=== PATIENT | female | born 1960 | race Caucasian/White ===

== ENCOUNTER → 2018-05-20 | Outpatient (CLI) | payer OTHER ==
[2018-05-20 09:36] VITALS: BP 114/64; TEMP 97.1; BMI 30.4
--- NOTE | 2018-05-20 10:15 | P.HPOB ---
History of Present Illness H&P Date: 05/20/18 Chief Complaint: The patient is here for her routine gynecologic exam and mammogram. This is a 58-year-old with an LMP of 2004. The patient is here to establish with this office. She is without gynecologic complaints and denies any postmenopausal bleeding. It has been about 6 years since her last pelvic exam and mammogram. Review of Systems She has lost about 60 pounds with dietary changes over the last 6 years. She denies respiratory, cardiac, or G.I. problems. 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 History of Any Multi-Drug Resistant Organisms: None Reported Past Surgical History: Section (x2) Past Psychological History: ADD/ADHD, Anxiety, Depression Smoking Status: Current every day smoker (Just under one pack per day.) Past Alcohol Use History: Rare Past Drug Use History: None Reported Additional History: She has been since 1980 and currently is not working outside the home. - Past Family History Mother Family Medical History: No Reported History Additional Family Medical History / Comment(s): Maternal grandmother had in [place]. Medications and Allergies Home Medications Medication Instructions Recorded Confirmed Type No Known Home Medications 05/20/18 05/20/18 History Allergies Allergy/AdvReac Type Severity Reaction Status Date / Time cat dander Allergy Unknown Verified 05/20/18 09:33 Penicillins Allergy Unknown Verified 05/20/18 09:33 Exam Vital Signs Temp BP 05/20/18 09:34 97.1 F L 114/64 Intake and Output 05/19/18 05/20/18 05/20/18 22:59 06:59 14:59 Other: Weight 73.028 kg Height 5'1", weight 161 pounds, BMI 30.4. This is a well-developed well-nourished white female who is alert and oriented times 3 in no acute distress. HEENT: Within normal limits. NECK: Supple without mass or thyromegaly. CHEST AND LUNGS: Clear to auscultation. HEART: Regular rate and rhythm. BREASTS: Are without mass or discharge. AXILLARY EXAM: Negative for adenopathy. BACK: Negative for CVA tenderness. ABDOMEN: Soft, nontender, without palpable masses. PELVIC EXAM: Normal external genitalia with mild atrophy. Cervix and vagina appear normal with mild to moderate atrophy. There is no unusual discharge. There is no evidence of prolapse. The uterus is midposition, nongravid size and nontender. There are no palpable adnexal masses or tenderness. RECTAL EXAM: rectovaginal exam is negative for mass or tenderness and is negative for occult blood. EXTREMITIES: Nontender. IMPRESSION: 1. 58-year-old menopausal female with normal gynecologic exam PLAN: 1. Pap smear was performed. 2. Self breast awareness was discussed with the patient. 3. Screening mammogram will be done today. 4. Osteoporosis prevention was discussed. 5. I have recommended that she established with the primary care physician assigned to her by her insurance company. She has not yet seen him, but is planning on making an appointment for this. I've also recommended that she do a colonoscopy based on her age. She states she will discuss this with her primary care physician when she establishes with him. 6. She will return in one year.
--- NOTE | 2018-05-22 12:31 | MM ---
Reason for exam: screening (asymptomatic). Last mammogram was performed 8 years and 9 months ago. History: Patient is postmenopausal. Physical Findings: A clinical breast exam by your physician is recommended on an annual basis and results should be correlated with mammographic findings. MG Screening Mammo w CAD Bilateral CC and MLO view(s) were taken. Prior study comparison: August 17, 2009, right breast mammogram dig work up. August 12, 2009, bilateral digital screening mammogram. There are scattered fibroglandular densities. No suspicious abnormality. No significant changes when compared with prior studies. ASSESSMENT: Negative, BI-RAD 1 RECOMMENDATION: Routine screening mammogram of both breasts in 1 year.
== END | disposition home or self-care (01) ==
LOC: WWCWWP 09:09
PROVIDERS: ATTEND Obstetrics & Gynecology
DX: Z12.31 Encounter for screening mammogram for malignant neoplasm of breast (principal)
CPT/HCPCS: 77067

== ENCOUNTER → 2020-02-26 | Outpatient (CLI) | payer OTHER ==
--- NOTE | 2020-02-29 09:16 | MM ---
Reason for exam: screening (asymptomatic). Last mammogram was performed 1 year and 9 months ago. History: Patient is postmenopausal. Physical Findings: A clinical breast exam by your physician is recommended on an annual basis and results should be correlated with mammographic findings. MG Screening Mammo w CAD Bilateral CC and MLO view(s) were taken. Prior study comparison: May 20, 2018, bilateral MG screening mammo w CAD. August 17, 2009, right breast mammogram dig work up. There are scattered fibroglandular densities. There is no discrete abnormality. Prominent benign right axillary lymph nodes redemonstrated. ASSESSMENT: Negative, BI-RAD 1 RECOMMENDATION: Routine screening mammogram of both breasts in 1 year.
== END | disposition home or self-care (01) ==
LOC: RADMAMWWP 08:35
PROVIDERS: ATTEND Family Medicine
DX: Z12.31 Encounter for screening mammogram for malignant neoplasm of breast (principal)
CPT/HCPCS: 77067

== ENCOUNTER → 2020-03-02 | Outpatient (CLI) | payer OTHER ==
[2020-03-02 11:19] VITALS: BP 130/84; PULSE 69; RESP 18; TEMP 98.2
--- NOTE | 2020-03-02 11:50 | P.HPOB ---
History of Present Illness H&P Date: 03/02/20 Chief Complaint: The patient is here for her routine gynecologic exam. This is a 59-year-old with an LMP of 2004. The patient is without gynecologic complaints and denies any postmenopausal bleeding. Review of Systems The patient's weight has been stable over the last year. She denies respiratory, cardiac, or G.I. problems. Past Medical History Past Medical History: Diabetes Mellitus Additional Past Medical History / Comment(s): Type 2 diabetes. 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 History of Any Multi-Drug Resistant Organisms: None Reported Past Surgical History: Section Additional Past Surgical History / Comment(s): section 2. Past Psychological History: ADD/ADHD, Anxiety, Depression Smoking Status: Current every day smoker (1 pack per day) Past Alcohol Use History: Rare Past Drug Use History: None Reported Additional History: She has been since 1980 and is currently unemployed. - Past Family History Mother Family Medical History: No Reported History Additional Family Medical History / Comment(s): Maternal grandmother had in [place]. Medications and Allergies Home Medications Medication Instructions Recorded Confirmed Type Aspirin 81 mg PO DAILY 03/02/20 03/02/20 History Atorvastatin [Lipitor] 20 mg PO HS 03/02/20 03/02/20 History Ergocalciferol [Vitamin D2 50,000 units PO [id number] 03/02/20 03/02/20 History (DRISDOL)] Pioglitazone [Actos] 15 mg PO HS 03/02/20 03/02/20 History metFORMIN HCL 1,000 mg PO BID 03/02/20 03/02/20 History Allergies Allergy/AdvReac Type Severity Reaction Status Date / Time cat dander Allergy Unknown Verified 03/02/20 11:11 Penicillins Allergy Unknown Verified 03/02/20 11:11 shellfish derived [Shellfish] Allergy Rash/Hives Unverified 03/02/20 11:11 Exam Vital Signs Temp Pulse Resp BP Pulse Ox 03/02/20 11:13 98.2 F 69 18 130/84 100 Intake and Output 03/01/20 03/02/20 03/02/20 22:59 06:59 14:59 Other: Weight 73.028 kg Height 5 feet 1 inch, weight 161 pounds, BMI 30.4. This is a well-developed well-nourished white female who is alert and oriented times 3 in no acute distress. HEENT: Within normal limits. NECK: Supple without mass or thyromegaly. CHEST AND LUNGS: Clear to auscultation. HEART: Regular rate and rhythm. BREASTS: Are without mass or discharge. AXILLARY EXAM: Negative for adenopathy. BACK: Negative for CVA tenderness. ABDOMEN: Soft, nontender, without palpable masses. PELVIC EXAM: Normal external genitalia with mild atrophy. Cervix and vagina appear normal with mild atrophy. There is no unusual discharge. There is no evidence of prolapse. The uterus is midposition, nongravid size and nontender. There are no palpable adnexal masses or tenderness. RECTAL EXAM: Rectovaginal exam is negative for mass or tenderness and is negative for occult blood. EXTREMITIES: Nontender. IMPRESSION: 1. 59-year-old menopausal female with normal gynecologic exam. PLAN: 1. Pap smear was deferred since she had a normal one on 05/20/2018. 2. Self breast awareness was discussed with the patient. 3. Screening mammogram was recently done on 02/26/2020 and was benign. She will repeat this in 1 year. 4. Osteoporosis prevention was discussed. I have stressed the importance of adequate calcium, vitamin D and regular exercise. Recommended amounts of calcium and vitamin D were also discussed. 5. I recommended screening colonoscopy since she has not had done in the past. She will speak with Dr. Merlin De Leon about this to see if they can help her arrange for this. 6. She was advised to return in one year for her annual well woman exam.
== END | disposition home or self-care (01) ==
LOC: WWCWWP 10:32
PROVIDERS: ATTEND Obstetrics & Gynecology
DX: Z53.9 Procedure and treatment not carried out, unspecified reason (principal)

== ENCOUNTER → 2020-08-30 | Day surgery (SDC) | payer OTHER ==
[2020-08-29 10:55] VITALS: BMI 30.2
[~2020-08-30] MED LIST: LACTATED RINGERS 1,000 ML IV SCH; LIDOCAINE 1% (10MG/ML) FOR IV START INTRADERMA ONE; LIDOCAINE 1% INJ 10MG/ML (20 ML MDV) ONE; PROPOFOL 10 MG/ML 20 ML VIAL IV ONE
[2020-08-30 07:48] VITALS: RESP 16; TEMP 97.9
[2020-08-30 07:53] LABS: Glucose,Whole Blood 141 mg/dL (75-99)
--- NOTE | 2020-08-30 08:36 | P.PCN ---
Date of Procedure: 08/30/20 Description of Procedure: BRIEF HISTORY: Patient is a 60-year-old female presenting for outpatient colonoscopy for screening for malignant neoplasm of the colon. No prior colonoscopy. No change in bowel habits. No family history of colon cancer but she does report ulcerative colitis in her mother and daughter. PROCEDURE PERFORMED: Colonoscopy with polypectomy. PREOPERATIVE DIAGNOSIS: Screening for malignant neoplasm of the colon, no prior colonoscopy. ESTIMATED BLOOD LOSS: Minimal. IV sedation per Anesthesia. PROCEDURE: After informed consent was obtained, the patient, was brought into the endoscopy unit. IV sedation was administered by Anesthesia under continuous monitoring. Digital rectal examination was normal. Initially the Olympus CF-190 flexible video colonoscope was then inserted in the rectum, gradually advanced into the cecum without any difficulty. Careful examination was performed as the scope was gradually being withdrawn. Ileocecal valve and the appendiceal orifice were visualized and appeared normal. Prep was excellent. Mucosa of the cecum, ascending colon, transverse colon, descending colon, sigmoid colon, and rectum appeared normal. 2 diminutive polyps measuring 1-2 mm in size removed from the rectum with cold forcep polypectomy. A few scattered diverticula noted throughout the colon. Retroflexion was performed in the rectum and no lesions were seen, low-grade internal hemorrhoids. The patient tolerated the procedure well. IMPRESSION: Mild pandiverticulosis. 2 diminutive polyps removed from the rectum with cold forcep polypectomy. RECOMMENDATIONS: Findings of this examination were discussed with the . Okay to resume diet. Okay to resume medication. Await pathology from polypectomy. Recommendation is for repeat colonoscopy in 7 years pending pathology from polypectomy.
[2020-08-30 09:07] VITALS: BP 126/78; PULSE 62
== END ==
LOC: ORWHC2ENDO 07:21
PROVIDERS: ATTEND Internal Medicine
DX: Z12.11 Encounter for screening for malignant neoplasm of colon (principal); K62.1 Rectal polyp; K57.30 Diverticulosis of large intestine without perforation or abscess without bleeding; Z72.0 Tobacco use; K51.90 Ulcerative colitis, unspecified, without complications; F17.210 Nicotine dependence, cigarettes, uncomplicated; F41.9 Anxiety disorder, unspecified; F32.9 Major depressive disorder, single episode, unspecified; F90.9 Attention-deficit hyperactivity disorder, unspecified type; Z98.891 History of uterine scar from previous surgery; Z98.49 Cataract extraction status, unspecified eye; Z79.84 Long term (current) use of oral hypoglycemic drugs; Z79.82 Long term (current) use of aspirin; Z79.899 Other long term (current) drug therapy; Z88.0 Allergy status to penicillin; Z91.013 Allergy to seafood; Z91.048 Other nonmedicinal substance allergy status
CPT/HCPCS: 88305; 45380; J2001; J2704

== ENCOUNTER → 2021-06-13 | Outpatient (CLI) | payer OTHER ==
[2021-06-13 11:32] VITALS: BP 124/76; PULSE 72; RESP 16; TEMP 98.2
--- NOTE | 2021-06-13 12:26 | P.HPOB ---
History of Present Illness H&P Date: 06/13/21 Chief Complaint: The patient is here for her routine gynecologic exam and ma mmogram. This is a 61-year-old with an LMP of 2004. The patient is without gynecologic complaints and denies any postmenopausal bleeding. Review of Systems The patient has gained 17 pounds over the last year. She denies respiratory, cardiac, or G.I. problems. Past Medical History Past Medical History: Diabetes Mellitus, Eye Disorder, Skin Disorder Additional Past Medical History / Comment(s): Type 2 diabetes. glaucoma santi eyes, skin disorder, lower extremity neuropathy. 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 History of Any Multi-Drug Resistant Organisms: MRSA Date of last positivie culture/infection: 2018 MDRO Source:: boils on skin Past Surgical History: Section Additional Past Surgical History / Comment(s): section 2, bilateral cataract surgery. Colonoscopy 2020(next after 10yr). Past Anesthesia/Blood Transfusion Reactions: Motion Sickness Past Psychological History: ADD/ADHD, Anxiety, Depression Smoking Status: Current every day smoker (1 pack per day) Past Alcohol Use History: Rare (1 per year) Past Drug Use History: None Reported Additional History: She has been since 1980 and does not work outside of the home. - Past Family History Mother Family Medical History: No Reported History Additional Family Medical History / Comment(s): Ulcerative colitis. Maternal grandmother had in [place]. Daughter(s) Additional Family Medical History / Comment(s): Ulcerative colitis. Medications and Allergies Home Medications Medication Instructions Recorded Confirmed Type Aspirin 81 mg PO DAILY 03/02/20 06/13/21 History Atorvastatin [Lipitor] 20 mg PO HS 03/02/20 06/13/21 History Pioglitazone [Actos] 15 mg PO HS 03/02/20 06/13/21 History metFORMIN HCL [Glucophage] 1,000 mg PO BID 03/02/20 06/13/21 History Latanoprost/Pf [Latanoprost 0.005% 1 drop BOTH EYES HS 08/29/20 06/13/21 History Eye Drop] Vit C/E/Zn/Coppr/Lutein/Zeaxan 1 each PO DAILY 08/29/20 06/13/21 History [Preservision Areds 2 Softgel] Allergies Allergy/AdvReac Type Severity Reaction Status Date / Time cat dander Allergy Unknown Verified 06/13/21 11:28 Penicillins Allergy Unknown Verified 06/13/21 11:28 shellfish derived [Shellfish] Allergy Rash/Hives Verified 06/13/21 11:28 Exam Vital Signs Temp Pulse Resp BP Pulse Ox 06/13/21 11:28 98.2 F 72 16 124/76 99 Intake and Output 06/12/21 06/13/21 06/13/21 22:59 06:59 14:59 Other: Weight 80.739 kg Height 5 foot 1 inch, weight 178 pounds, BMI 33.6. This is a well-developed well-nourished white female who is alert and oriented t imes 3 in no acute distress. HEENT: Within normal limits. NECK: Supple without mass or thyromegaly. CHEST AND LUNGS: Clear to auscultation. HEART: Regular rate and rhythm. BREASTS: Are without mass or discharge. AXILLARY EXAM: Negative for adenopathy. BACK: Negative for CVA tenderness. ABDOMEN: Soft, nontender, without palpable masses. PELVIC EXAM: Normal external genitalia with mild atrophy. Cervix and vagina appear normal with mild atrophy. There is no unusual discharge. There is no evidence of prolapse. The uterus is midposition, nongravid size and nontender. There are no palpable adnexal masses or tenderness. RECTAL EXAM: Rectovaginal exam is negative for mass or tenderness and is negative for occult blood. EXTREMITIES: Nontender. IMPRESSION: 1. 61-year-old menopausal female with normal gynecologic exam. 2. Smoker. PLAN: 1. Pap smear cotest was performed. 2. Self breast awareness was discussed with the patient. We have also discussed symptoms associated with inflammatory breast cancer. 3. Screening mammogram will be done today. 4. I have strongly recommended that she try to quit smoking. We have discussed many reasons why this is important. 5. Osteoporosis prevention was discussed. I have stressed the importance of adequate calcium, vitamin D and regular exercise. Recommended amounts of calcium and vitamin D were also discussed. We will plan on doing a baseline bone density test at age 62. She can do this at the time of her next well woman examination in 1 year. 6. She has completed her Covid vaccination series and plans to get a booster in the near future. 7. She was advised to return in one year for her annual well woman exam.
--- NOTE | 2021-06-15 13:37 | MM ---
Reason for exam: screening (asymptomatic). Last mammogram was performed 1 year and 4 months ago. History: Patient is postmenopausal. Physical Findings: A clinical breast exam by your physician is recommended on an annual basis and results should be correlated with mammographic findings. MG Screening Mammo w CAD Bilateral CC and MLO view(s) were taken. Prior study comparison: February 26, 2020, bilateral MG screening mammo w CAD. May 20, 2018, bilateral MG screening mammo w CAD. There are scattered fibroglandular densities. No significant changes when compared with prior studies. ASSESSMENT: Negative, BI-RAD 1 RECOMMENDATION: Routine screening mammogram of both breasts in 1 year.
== END ==
LOC: WWCWWP 11:05
PROVIDERS: ATTEND Obstetrics & Gynecology
DX: Z01.419 Encounter for gynecological examination (general) (routine) without abnormal findings (principal); F17.210 Nicotine dependence, cigarettes, uncomplicated; E11.40 Type 2 diabetes mellitus with diabetic neuropathy, unspecified; F41.9 Anxiety disorder, unspecified; F32.9 Major depressive disorder, single episode, unspecified; F90.9 Attention-deficit hyperactivity disorder, unspecified type; Z79.84 Long term (current) use of oral hypoglycemic drugs; Z88.0 Allergy status to penicillin; Z91.09 Other allergy status, other than to drugs and biological substances; Z91.013 Allergy to seafood
CPT/HCPCS: 77067

== ENCOUNTER → 2021-06-13 | Outpatient (CLI) | payer OTHER ==
--- NOTE | 2021-06-13 13:13 | XR ---
EXAMINATION TYPE: XR Hip LT and AP Pelvis DATE OF EXAM: 06/13/2021 COMPARISON: NONE HISTORY: Pain TECHNIQUE: A single AP view of the pelvis is obtained. Two views of the left hip are obtained. FINDINGS: There is no acute fracture/dislocation evident in the pelvis. SI joints symmetric. Hypertr ophic and degenerative change lumbar spine. Moderate concentric narrowing of the hip joint bilaterall y with hypertrophic change of the acetabulum. Tiny calcification adjacent to the inferior pubic ramus likely chronic.. The overlying soft tissue appears unremarkable. Two views of left hip show no acute fracture or dislocation. No focal lytic or sclerotic lesion seen in the proximal left femur. The overlying soft tissue is unremarkable. IMPRESSION: 1. Moderate arthropathy correlate for femoral acetabular impingement.
--- NOTE | 2021-06-13 13:14 | XR ---
EXAM TYPE: LUMBAR SPINE X RAY SERIES COMPARISON: NONE HISTORY: Pain TECHNIQUE: 4 views are submitted. FINDINGS: Alignment is anatomic. The pedicles are intact. The transverse processes are intact. There is hype rtrophic and degenerative change of the spine with multilevel facet arthropathy. Arthropathy of the S I joints. IMPRESSION: 1. Hypertrophic and degenerative change of the spine with severe facet arthropathy. Suspect foraminal encroachment recommend MRI.
== END | disposition home or self-care (01) ==
LOC: RADXRMAIN 12:37
PROVIDERS: ATTEND Family Medicine
DX: M47.816 Spondylosis without myelopathy or radiculopathy, lumbar region (principal); M16.12 Unilateral primary osteoarthritis, left hip
CPT/HCPCS: 72110; 73502

== ENCOUNTER → 2021-11-09 | Outpatient (CLI) | payer OTHER ==
--- NOTE | 2021-11-10 06:24 | MR ---
EXAMINATION TYPE: MR lumbar spine wo con DATE OF EXAM: 11/09/2021 COMPARISON: Lumbar spine x-ray June 13, 2021 HISTORY: Low back pain into left outer thigh, moderate ddd TECHNIQUE: Multiplanar, multisequence imaging of the lumbar spine is performed without IV contrast. FINDINGS: Slight scoliotic curvature redemonstrated. Sagittal images of the lumbar spine show vertebr al body heights and alignment to appear satisfactory. Multilevel disc desiccation but disc space heig hts are maintained.. The conus medullaris is normal in position and signal ending inferior L1 level. The bone marrow signal intensity is within normal limits. Mild multilevel anterior spurring. Tiny p osterior disc herniation mildly effacing anterior thecal sac in the lower thoracic spine on sagittal images Axial images at T12-L1 level shows tiny central disc protrusion minimally effacing the anterior theca l sac. Axial images at L1-L2 and L2-L3 levels appear within normal limits. Axial images at L3-L4 level show mild broad disc bulge minimally effacing the anterior thecal sac. Pa tent bilateral neural foramina. Axial images at L4-L5 level show mild to moderate facet arthropathy and ligamentum flavum hypertrophy mildly effacing left posterior lateral thecal sac. Patent bilateral neural foramina. Axial images at L5-S1 level show mild to moderate facet arthropathy. Spinal canal is preserved. Paten t bilateral neural foramina. The paraspinal muscle bulk is maintained. IMPRESSION: Multilevel mild degenerative changes in lumbar spine as detailed above.
== END | disposition home or self-care (01) ==
LOC: RADMRIMAIN 14:19
PROVIDERS: ATTEND Family Medicine
DX: M47.816 Spondylosis without myelopathy or radiculopathy, lumbar region (principal)
CPT/HCPCS: 72148

== ENCOUNTER → 2023-05-08 | Outpatient (CLI) | payer OTHER ==
--- NOTE | 2023-05-08 10:55 | CTL ---
EXAMINATION TYPE: CT Low Dose Lung DATE OF EXAM ORDERED: 05/08/2023 HISTORY: 62-year-old female, current smoker with 30 pack-year history. Z12.2, Z87.891, F17.210. Lung cancer screening CT DLP: 79.[address] CTDI: 2.4 mGy Automated exposure control for dose reduction was used. SCREENING VISIT: Baseline COMPARISON: None TECHNIQUE: Low dose computed tomography scan was performed through the chest with coronal and sagitta l reconstructions. CT DIAGNOSTIC QUALITY: Satisfactory FINDINGS: Heart borderline enlarged without pericardial effusion. Aorta normal caliber with conventional arch vessel branching anatomy. No thoracic lymphadenopathy by CT size criteria. There is some strandy atelectasis or scarring in the lower lungs. No consolidation or pleural effusio n. No suspicious pulmonary nodule or mass. Visualized upper abdomen shows a tiny hiatal hernia. Bones: Mild degenerative disc disease lower thoracic spine. IMPRESSION: 1. Lung RADS 1, negative. No suspicious pulmonary nodules. 2. Some strandy scarring or atelectasis in the lower lungs. No acute pulmonary process. CT LUNG RAD AND CT CHEST RECOMMENDATION: Lung-Rad 1 Negative: Continue annual screening with LDCT in 12 months. S Modifier (other clinically significant findings): None
== END | disposition home or self-care (01) ==
LOC: RADCTMAIN 09:10
PROVIDERS: ATTEND Family Medicine
DX: Z12.2 Encounter for screening for malignant neoplasm of respiratory organs (principal); F17.210 Nicotine dependence, cigarettes, uncomplicated
CPT/HCPCS: 71271

== ENCOUNTER 2023-12-14 17:05 | Emergency (ER) | payer BC, OTHER ==
--- NOTE | 2023-12-14 17:30 | ED ---
Abdominal Pain HPI - General Chief Complaint: Abdominal Pain Stated Complaint: L side abd pain Time Seen by Provider: 12/14/23 17:17 Source: patient, RN notes reviewed, old records reviewed Mode of arrival: ambulatory Limitations: no limitations - History of Present Illness Initial Comments: This is a 63-year-old female to the ER for evaluation today. Patient presents in significant abdominal pain. Left lower quadrant abdominal pain epigastric abdominal pain pain to the back pain to the shoulder. Patient does have a history of colonoscopy showing diverticulosis no history of diverticulitis. History of no other surgical history. Symptoms been going on for few days and getting worse MD Complaint: abdominal pain Location: diffuse, epigastric, suprapubic Radiation: epigastric, suprapubic Migration to: epigastric, suprapubic Severity: moderate Severity scale (1-10): 7 Quality: cramping, aching Improves With: nothing Worsens With: nothing Associated Symptoms: nausea Treatments Prior to Arrival: other - Related Data Home Medications Medication Instructions Recorded Confirmed Aspirin 81 mg PO DAILY 03/02/20 06/13/21 Atorvastatin [Lipitor] 20 mg PO HS 03/02/20 06/13/21 Pioglitazone [Actos] 15 mg PO HS 03/02/20 06/13/21 metFORMIN HCL [Glucophage] 1,000 mg PO BID 03/02/20 06/13/21 Latanoprost/Pf [Latanoprost 0.005% 1 drop BOTH EYES HS 08/29/20 06/13/21 Eye Drop] Vit C/E/Zn/Coppr/Lutein/Zeaxan 1 each PO DAILY 08/29/20 06/13/21 [Preservision Areds 2 Softgel] Previous Rx's Medication Instructions Recorded Ciprofloxacin HCl [Cipro] 500 mg PO Q12HR #20 tablet 12/14/23 metroNIDAZOLE [Flagyl] 500 mg PO TID #30 tab 12/14/23 Allergies Allergy/AdvReac Type Severity Reaction Status Date / Time cat dander Allergy Unknown Verified 12/14/23 17:11 Penicillins Allergy Unknown Verified 12/14/23 17:11 shellfish derived [Shellfish] Allergy Rash/Hives Verified 12/14/23 17:11 Review of Systems ROS Statement: Those systems with pertinent positive or pertinent negative responses have been documented in the HPI. ROS Other: All systems not noted in ROS Statement are negative. Past Medical History Past Medical History: Diabetes Mellitus, Eye Disorder, Skin Disorder Additional Past Medical History / Comment(s): Type 2 diabetes. glaucoma santi eyes, skin disorder, lower extremity neuropathy. 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 History of Any Multi-Drug Resistant Organisms: MRSA Date of last positivie culture/infection: 2018 MDRO Source:: boils on skin Past Surgical History: Section Additional Past Surgical History / Comment(s): section 2, bilateral cataract surgery. Colonoscopy 2020(next after 10yr). Past Anesthesia/Blood Transfusion Reactions: Motion Sickness Past Psychological History: ADD/ADHD, Anxiety, Depression Smoking Status: Current every day smoker Past Alcohol Use History: Rare Past Drug Use History: None Reported - Past Family History Mother Family Medical History: No Reported History Additional Family Medical History / Comment(s): Ulcerative colitis. Maternal grandmother had in [place]. Daughter(s) Additional Family Medical History / Comment(s): Ulcerative colitis. General Exam Limitations: no limitations General appearance: alert, in no apparent distress Head exam: Present: atraumatic, normocephalic, normal inspection Eye exam: Present: normal appearance, PERRL, EOMI. Absent: scleral icterus, conjunctival injection, periorbital swelling ENT exam: Present: normal exam, mucous membranes moist Neck exam: Present: normal inspection. Absent: tenderness, meningismus, lymphadenopathy Respiratory exam: Present: normal lung sounds bilaterally. Absent: respiratory distress, wheezes, rales, rhonchi, stridor Cardiovascular Exam: Present: regular rate, normal rhythm, normal heart sounds. Absent: systolic murmur, diastolic murmur, rubs, gallop, clicks GI/Abdominal exam: Present: soft, normal bowel sounds. Absent: distended, tenderness, guarding, rebound, rigid Extremities exam: Present: normal inspection, full ROM, normal capillary refill. Absent: tenderness, pedal edema, joint swelling, calf tenderness Back exam: Present: normal inspection Neurological exam: Present: alert, oriented X3, CN II-XII intact Psychiatric exam: Present: normal affect, normal mood Skin exam: Present: warm, dry, intact, normal color. Absent: rash Course Vital Signs 12/14/23 12/14/23 12/14/23 17:10 17:53 19:41 Temperature 98.6 F 97.8 F Pulse Rate 84 73 62 Respiratory 18 18 16 Rate Blood Pressure 160/91 162/80 137/67 O2 Sat by Pulse 100 98 100 Oximetry 12/14/23 21:50 Temperature 97.8 F Pulse Rate 67 Respiratory 20 Rate Blood Pressure 130/60 O2 Sat by Pulse 100 Oximetry - Reevaluation(s) Reevaluation #1: 12/14/23 17:30 Medical records reviewed Reevaluation #2: 12/14/23 21:31 Patient symptoms are unchanged Reevaluation #3: 12/14/23 21:31 Patient informed of results and questions answered Reevaluation #4: Was pt. sent in by a medical professional or institution (, PA, INSURANCE VERIFICATION SPECIALIST, urgent care, hospital, or long term...) When possible be specific @ -no Did you speak to anyone other than the patient for history (EMS, parent, family, police, friend...)? What history was obtained from this source @ -no Did you review nursing and triage notes (agree or disagree)? Why? @ -agree Are old charts reviewed (outside hosp., previous admission, EMS record, old EKG, old radiological studies, urgent care reports/EKG's, long term records)? Report findings @ -yes Differential Diagnosis (chest pain, altered mental status, abdominal pain women, abdominal pain men, vaginal bleeding, weakness, fever, dyspnea, syncope, headache, dizziness, GI bleed, back pain, seizure, CVA, palpatations, mental health, musculoskeletal)? @ -prior EKG interpreted by me (3pts min.). @ -yes X-rays interpreted by me (1pt min.). @ -no CT interpreted by me (1pt min.). @ -Yes positive diverticulitis U/S interpreted by me (1pt. min.). @ -no What testing was considered but not performed or refused? (CT, X-rays, U/S, labs)? Why? @ -none What meds were considered but not given or refused? Why? @ -none Did you discuss the management of the patient with other professionals (professionals i.e. , PAULINA, INSURANCE VERIFICATION SPECIALIST, lab, RT, psych nurse, social services technician, caregivers homecare, teacher, college service officer, hospice case manager)? Give summary @ -no Was smoking cessation discussed for >3mins.? @ -no Was critical care preformed (if so, how long)? @ -no Were there social determinants of health that impacted care today? How? (Homelessness, low income, unemployed, alcoholism, drug addiction, transportation, low edu. Level, literacy, decrease access to med. care, snf, rehab)? @ -none Was there de-escalation of care discussed even if they declined (Discuss DNR or withdrawal of care, Hospice)? DNR status @ -no What co-morbidities impacted this encounter? (DM, HTN, Smoking, COPD, CAD, Cancer, CVA, ARF, Chemo, Hep., AIDS, mental health diagnosis, sleep apnea, morbid obesity)? @ -none Was patient admitted / discharged? Hospital course, mention meds given and route, prescriptions, significant lab abnormalities, going to OR and other pertinent info. @ - 63-year-old female to the ER for evaluation of abdominal pain. Patient presents today for evaluation of significant abdominal pain found to have diverticulitis, placed on antibiotics and encouraged clear liquid diet and can be discharged home Discharge Undiagnosed new problem with uncertain prognosis? @ -no Drug Therapy requiring intensive monitoring for toxicity (Heparin, Nitro, In sulin, Cardizem)? @ -no Were any procedures done? @ -no Diagnosis/symptom? @ -Abdominal pain diverticulitis Acute, or Chronic, or Acute on Chronic? @ -Acute Uncomplicated (without systemic symptoms) or Complicated (systemic symptoms)? @ -Complicated Side effects of treatment? @ -no Exacerbation, Progression, or Severe Exacerbation? @ -exacerbation Poses a threat to life or bodily function? How? (Chest pain, [place], [place], pneumonia, PE, COPD, DKA, ARF, appy, cholecystitis, CVA, Diverticulitis, Homicidal, Suicidal, threat to staff... and all critical care pts) @ -no Reevaluation #5: Differential Abdominal Pain Women: Appendicitis, Cholecystitis, diverticulosis, ischemic bowel, pancreatitis, hepatitis, UTI, gastroenteritis, AAA, incarcerated hernia, bowel obstruction, constipation, inflammatory bowel, hepatitis, peptic ulcer disease, splenic infarction, perforated viscus, vulvitis, ovarian torsion, PID, kidney stone, placenta abruption, this is not meant to be an all-inclusive list Medical Decision Making - Medical Decision Making 63-year-old female to the ER for evaluation of abdominal pain. Patient presents today for evaluation of significant abdominal pain found to have diverticulitis, placed on antibiotics and encouraged clear liquid diet and can be discharged home - Lab Data Result diagrams: 12/14/23 17:44 12/14/23 17:44 Lab Results 12/14/23 12/14/23 12/14/23 Range/Units 17:44 17:44 17:44 WBC 8.6 (3.8-10.6) k/uL RBC 3.59 L (3.80-5.40) m/uL Hgb 11.3 L (11.4-16.0) gm/dL Hct 36.0 (34.0-46.0) % MCV 100.2 H (80.0-100.0) fL MCH 31.3 (25.0-35.0) pg MCHC 31.3 (31.0-37.0) g/dL RDW 13.8 (11.5-15.5) % Plt Count 195 (150-450) k/uL MPV 8.8 Neutrophils % 71 % Lymphocytes % 17 % Monocytes % 7 % Eosinophils % 3 % Basophils % 1 % Neutrophils # 6.1 (1.3-7.7) k/uL Lymphocytes # 1.5 (1.0-4.8) k/uL Monocytes # 0.6 (0-1.0) k/uL Eosinophils # 0.2 (0-0.7) k/uL Basophils # 0.1 (0-0.2) k/uL PT 10.5 (10.0-12.5) sec INR 1.0 (<1.2) APTT 21.6 L (22.0-30.0) sec Sodium (137-145) mmol/L Potassium (3.5-5.1) mmol/L Chloride (98-107) mmol/L Carbon Dioxide (22-30) mmol/L Anion Gap mmol/L BUN (7-17) mg/dL Creatinine (0.52-1.04) mg/dL Est GFR (CKD-EPI)AfAm (>60 ml/min/1.73 sqM) Est GFR (CKD-EPI)NonAf (>60 ml/min/1.73 sqM) Glucose (74-99) mg/dL Plasma Lactic Acid Luis Antonio (0.7-2.0) mmol/L Calcium (8.4-10.2) mg/dL Total Bilirubin (0.2-1.3) mg/dL AST (14-36) U/L ALT (4-34) U/L Alkaline Phosphatase (38-126) U/L Total Protein (6.3-8.2) g/dL Albumin (3.5-5.0) g/dL Amylase (30-110) U/L Lipase (23-300) U/L Urine Color Colorless Urine Appearance Clear (Clear) Urine pH 6.0 (5.0-8.0) Ur Specific Alleman 1.011 (1.001-1.035) Urine Protein Negative (Negative) Urine Glucose (UA) 4+ H (Negative) Urine Ketones Negative (Negative) Urine Blood Negative (Negative) Urine Nitrite Negative (Negative) Urine Bilirubin Negative (Negative) Urine Urobilinogen <2.0 (<2.0) mg/dL Ur Leukocyte Esterase Negative (Negative) 12/14/23 12/14/23 Range/Units 17:44 17:44 WBC (3.8-10.6) k/uL RBC (3.80-5.40) m/uL Hgb (11.4-16.0) gm/dL Hct (34.0-46.0) % MCV (80.0-100.0) fL MCH (25.0-35.0) pg MCHC (31.0-37.0) g/dL RDW (11.5-15.5) % Plt Count (150-450) k/uL MPV Neutrophils % % Lymphocytes % % Monocytes % % Eosinophils % % Basophils % % Neutrophils # (1.3-7.7) k/uL Lymphocytes # (1.0-4.8) k/uL Monocytes # (0-1.0) k/uL Eosinophils # (0-0.7) k/uL Basophils # (0-0.2) k/uL PT (10.0-12.5) sec INR (<1.2) APTT (22.0-30.0) sec Sodium 137 (137-145) mmol/L Potassium 4.1 (3.5-5.1) mmol/L Chloride 105 (98-107) mmol/L Carbon Dioxide 24 (22-30) mmol/L Anion Gap 8 mmol/L BUN 23 H (7-17) mg/dL Creatinine 1.00 (0.52-1.04) mg/dL Est GFR (CKD-EPI)AfAm 71 (>60 ml/min/1.73 sqM) Est GFR (CKD-EPI)NonAf 61 (>60 ml/min/1.73 sqM) Glucose 297 H (74-99) mg/dL Plasma Lactic Acid Luis Antonio 1.2 (0.7-2.0) mmol/L Calcium 9.2 (8.4-10.2) mg/dL Total Bilirubin 1.0 (0.2-1.3) mg/dL AST 22 (14-36) U/L ALT 18 (4-34) U/L Alkaline Phosphatase 69 (38-126) U/L Total Protein 6.8 (6.3-8.2) g/dL Albumin 4.1 (3.5-5.0) g/dL Amylase 57 (30-110) U/L Lipase 130 (23-300) U/L Urine Color Urine Appearance (Clear) Urine pH (5.0-8.0) Ur Specific Al[place] (1.001-1.035) Urine Protein (Negative) Urine Glucose (UA) (Negative) Urine Ketones (Negative) Urine Blood (Negative) Urine Nitrite (Negative) Urine Bilirubin (Negative) Urine Urobilinogen (<2.0) mg/dL Ur Leukocyte Esterase (Negative) - Radiology Data Radiology results: report reviewed (CT on pelvis positive for diverticulitis), image reviewed Disposition Clinical Impression: Abdominal pain, Diverticulitis Disposition: HOME SELF-CARE Condition: Good Instructions (If sedation given, give patient instructions): Diverticulitis (ED) Prescriptions: Ciprofloxacin HCl [Cipro] 500 mg PO Q12HR #20 tablet metroNIDAZOLE [Flagyl] 500 mg PO TID #30 tab Is patient prescribed a controlled substance at d/c from ED?: No Referrals: Dee Dee De Souza MD [Primary Care Provider] - 1-2 days Phuong Vogel MD [STAFF PHYSICIAN] - 1-2 days Time of Disposition: 20:50
[2023-12-14] MEDS: SODIUM CHLORIDE 0.9% 1,000 ML IV STA (17:47)
[2023-12-14] MEDS: KETOROLAC 15 MG/ML 1 ML VIAL IVP STA (17:48)
[2023-12-14 18:06] LABS: Basophils # (A) 0.1 k/uL (0-0.2); Basophils % (A) 1 %; Eosinophils # (A) 0.2 k/uL (0-0.7); Eosinophils % (A) 3 %; HGB 11.3 gm/dL (11.4-16.0); Lymphocytes # (A) 1.5 k/uL (1.0-4.8); Lymphocytes % (A) 17 %; MCH 31.3 pg (25.0-35.0); MCHC 31.3 g/dL (31.0-37.0); MCV 100.2 fL (80.0-100.0); Mean Platelet Volume 8.8; Monocytes # (A) 0.6 k/uL (0-1.0); Monocytes % (A) 7 %; Neutrophils # (A) 6.1 k/uL (1.3-7.7); Neutrophils % (A) 71 %; Platelet Count 195 k/uL (150-450); RBC 3.59 m/uL (3.80-5.40); RDW 13.8 % (11.5-15.5); WBC 8.6 k/uL (3.8-10.6)
[2023-12-14 18:07] LABS: Appearance,Urine Clear (Clear); Bilirubin,Urine Negative (Negative); Blood,Urine Negative (Negative); Color,Urine Colorless; Glucose,Urine (UA) 4+ (Negative); Ketones,Urine Negative (Negative); Leukocyte Esterase,Urine Negative (Negative); Nitrite,Urine Negative (Negative); Protein,Urine Negative (Negative); Specific Gravity,Urine 1.011 (1.001-1.035); Urobilinogen,Urine <2.0 mg/dL (<2.0)
[2023-12-14 18:26] LABS: ALT 18 U/L (4-34); AST 22 U/L (14-36); African American GFR (CKD) 71 (>60 ml/min/1.73 sqM); Albumin 4.1 g/dL (3.5-5.0); Alkaline Phosphatase 69 U/L (38-126); Amylase 57 U/L (30-110); Anion Gap 8 mmol/L; Blood Urea Nitrogen 23 mg/dL (7-17); Calcium 9.2 mg/dL (8.4-10.2); Carbon Dioxide 24 mmol/L (22-30); Chloride 105 mmol/L (98-107); Glucose 297 mg/dL (74-99); Lipase 130 U/L (23-300); Non-African American GFR(CKD) 61 (>60 ml/min/1.73 sqM); Potassium 4.1 mmol/L (3.5-5.1); Sodium 137 mmol/L (137-145); Total Protein 6.8 g/dL (6.3-8.2)
[2023-12-14 18:32] LABS: Prothrombin Time 10.5 sec (10.0-12.5)
[2023-12-14 18:46] LABS: Partial Thromboplastin Time 21.6 sec (22.0-30.0)
--- NOTE | 2023-12-14 20:09 | CT ---
EXAMINATION TYPE: CT abdomen pelvis w con CT DLP: 1319.7 mGycm, Automated exposure control for dose reduction was used. DATE OF EXAM: 12/14/2023 7:28 PM COMPARISON: None. CLINICAL INDICATION:Female, 63 years old with history of abdominal pain; left side abd pain. no hx TECHNIQUE: Axial CT abdomen pelvis w con;Sagittal and coronal reformats were created on a separate w orkstation. Contrast used:80ml mL of Isovue 300 with IV Contrast, (none if empty) Oral contrast used: without Oral Contrast (none if empty) FINDINGS: LOWER CHEST: Heart is mildly enlarged for size. ABDOMEN LIVER: Unremarkable GALLBLADDER AND BILE DUCTS: Unremarkable. PANCREAS: Unremarkable. SPLEEN: Unremarkable. ADRENAL GLANDS: Unremarkable. KIDNEYS AND URETERS: 4 mm right nonobstructing calculus. No left obstructing calculi. No hydronephros is. PELVIS BLADDER: Unremarkable REPRODUCTIVE: Unremarkable. ABDOMEN & PELVIS STOMACH AND BOWEL: No evidence of bowel obstruction. Appendix is normal there is some fat stranding c hanges in the right paracolic gutter surrounding a diverticula involving the cecum series 201 image 5 0. PERITONEUM/RETROPERITONEUM: No evidence of pneumoperitoneum or free fluid. VASCULATURE: No evidence of aortic aneurysm. MUSCULOSKELETAL: No acute osseous abnormalities LYMPH NODES: No gross evidence for lymphadenopathy. SOFT TISSUE/ABDOMINAL WALL: Unremarkable IMPRESSION: 1. Mild right paracolic gutter inflammation changes near a diverticula possibly representing cecal d iverticulitis. No evidence for acute process in the left abdomen. No obstructive uropathy or renal ca lculus. 2. The appendix is normal. 3. No evidence for acute abdominal process. 4. Nonobstructing right renal calculus.
[2023-12-14 20:39] VITALS: TEMP 97.8
[2023-12-14] MEDS: IBUPROFEN 600 MG STARTER PACK 4 TAB BTL PO STA (21:36)
[2023-12-14] MEDS: CIPROFLOXACIN HCL 500 MG TAB PO STA (21:36)
[2023-12-14] MEDS: metroNIDAZOLE 500 MG TAB PO STA (21:36)
[2023-12-14] MEDS: ONDANSETRON 4 MG ODT STARTER PACK 2 TAB BTL PO STA (21:36)
[2023-12-14] MEDS: ACET/COD 300 MG/30 MG STARTER PACK 6 TAB BTL PO STA (21:37)
[2023-12-14] MEDS: Acetaminophen-Codeine 300-30mg TAB PO STA (21:44)
[2023-12-14 22:19] VITALS: BP 130/60; PULSE 67; RESP 20
== END 2023-12-14 21:50 | disposition home or self-care (01) ==
LOC: EC 17:05
DX: K57.32 Diverticulitis of large intestine without perforation or abscess without bleeding (principal); F17.200 Nicotine dependence, unspecified, uncomplicated; Z88.0 Allergy status to penicillin; Z91.013 Allergy to seafood; Z91.09 Other allergy status, other than to drugs and biological substances
CPT/HCPCS: 36415; 80053; 82150; 83605; 83690; 85025; 85610; 85730; 81003; 74177; 99284; 96374; 96361; J1885; S0119; Q9967